=== PATIENT | male | born 1995 | race Two or more races ===

== ENCOUNTER 2023-06-25 03:17 | Emergency (ER) | payer MEDICAID ==
[~2023-06-25] VITALS: Ht 175.3 cm; Wt 109.0 kg
[2023-06-25 03:31] VITALS: BP 140/86; PULSE 89; RESP 16; TEMP 99.1; O2SAT 97
[2023-06-25] MEDS ORDERED: MUPI2OIN2 EX (03:38)
[2023-06-25] MEDS ORDERED: IBUP1TAB5 PO (03:38)
[2023-06-25] MEDS ORDERED: AUG875T PO (03:38)
[2023-06-25] MEDS: TETANUS-DIPTH-ACEL PERTUSSIS 0.5ML SYR Tdap IM ONE (04:36)
[2023-06-25] MEDS: AMOXICILLIN/CLAVUL 875 MG TAB PO ONE (04:37)
[2023-06-25] MEDS: NEOMYCIN-BACITRACIN-POLYM UNITDOSE PKG TOP OINT TOP ONE (04:37)
[2023-06-25] MEDS: IBUPROFEN 600 MG TAB PO ONE (04:37)
== END 2023-06-25 06:10 | disposition home or self-care (01) ==
LOC: ER 03:17
DX: S61.432A Puncture wound without foreign body of left hand, initial encounter (principal); S61.452A Open bite of left hand, initial encounter; W54.0XXA Bitten by dog, initial encounter; Y93.89 Activity, other specified; Y92.89 Other specified places as the place of occurrence of the external cause; Y99.8 Other external cause status
CPT/HCPCS: 90471; 90715

== ENCOUNTER 2025-04-22 10:24 | Emergency (ER) | payer MEDICAID ==
[~2025-04-22] VITALS: Ht 172.7 cm; Wt 103.9 kg
[~2025-04-22 10:24] MED LIST: AUG875T PO; IBUP1TAB5 PO; MUPI2OIN2 EX
--- NOTE | 2025-04-22 11:27 | ED.PDOC ---
Eye-HPI HPI Comments 29 year old male presents to the ED with a chief complaint of sore throat onset 2 days. Patient states he has been experiencing sore throat for the past 2 days, makes it difficult to eat or drink due to pain. He also noticed sore throat is causing shortness of breath. Patient went to urgent care, was advised to come to ED to rule out Peritonsillar abscess. No other symptoms or modifying factors present at this time. Denies chest pain Denies inability to move neck, history of meningitis Denies fevers chills night sweats Denies persistent cough, runny nose, congestion Denies loss of appetite, unintentional weight loss over the past 3 months Denies voice changes Denies history of asthma or seasonal allergies Chief Complaint: Sore Throat Time Seen by MD: 11:20 Reviewed Notes: Medications, Allergies Allergies: Coded Allergies: NO KNOWN ALLERGIES (Unverified , 06/25/23) Home Meds Active Scripts Ibuprofen Micronized (Ibuprofen) 600 Mg Tab, 1 TAB PO Q6HPRN PRN, #20 TAB as needed for pain Prov:VILLANUEVA,NORALDA Q W[employer]ING MACHINE OPERATOR THERMIT 06/25/23 Mupirocin (Pseudomonas Fluores (Mupirocin) 2 % Oin, 1 APPLIC EX TID for 10 Days, #15 MG Prov:VILLANUEVA,NORALDA Q WELDING MACHINE OPERATOR THERMIT 06/25/23 Amoxicillin & Pot Clavulanate (AUGMENTIN TABLET) 875 Mg Tb, 1 TAB PO BID for 10 Days, #20 TAB Prov:VILLANUEVA,NORALDA Q WELDING MACHINE OPERATOR THERMIT 06/25/23 Information Source: Patient Mode of Arrival: Ambulatory Timing: Days Duration: Since onset Prehospital treatment: None Past Medical History PAST MEDICAL HISTORY: Denies Surgical History: Denies all surgeries Family History Family History: Reviewed,noncontributory to illness, No family hx of Cancer, No family hx of DM, No family hx of Heart jess, No family hx of HTN, No family hx ofKidney jess, No family hx of Liver jess, No family hx of Lung jess, No family hx of Stroke Social History Smoker: Non-Smoker Alcohol: Denies ETOH Use Drugs: Denies Drug Use Lives In: Home All Other Systems: Reviewed and Negative (as per HPI) Physical Exam General Appearance: No Apparent Distress, Normal HEENT: TMs Normal, Other (+3 swelling to RT tonsil with visible tonsillar exudate, uvula midline, no deviation, airway is intact) Neck: Full Range of Motion, Non-Tender, Normal, Normal Inspection Respiratory: Chest Non-Tender, Lungs Clear, No Accessory Muscle Use, No Respiratory Distress, Normal Breath Sounds Cardiovascular: No Edema, No JVD, No Murmur, No Gallop, Normal Peripheral Pulses, Regular Rate/Rhythm Breast Exam: Deferred Gastrointestinal: No Organomegaly, Non Tender, No Pulsatile Mass, Normal Bowel Sounds, Soft Genitalia: Deferred Pelvic: Deferred Rectal: Deferred Extremities: No calf tenderness, Normal capillary refill, Normal inspection, Normal range of motion, Non-tender, No pedal edema Musculoskeletal : Apperance: Normal Neurologic: Alert, washhouse hand II-XII nml as Tested, No Motor Deficits, Normal Affect, Normal Mood, No Sensory Deficits Cerebellar Function: Normal Reflexes: Normal Skin: Dry, Normal Color, Warm Lymphatic: No Adenopathy Was a procedure done? Was a procedure done?: No EENT DIFF Eye: Other X-Ray, Labs, Meds, VS Vital Signs Date Time Temp Pulse Resp B/P (MAP) Pulse Ox O2 Delivery O2 Flow Rate FiO2 04/22/25 17:08 95 14 98 Room Air* 0 21 04/22/25 17:06 16 96 Room Air 04/22/25 17:06 98.7 85 16 120/77 (91) 96 98.7 04/22/25 13:07 98.1 104 16 126/77 (93) 98 98.1 04/22/25 10:43 97.6 101 16 142/92 96 97.6 Lab Test 04/22/25 16:59 04/22/25 15:42 04/22/25 13:30 04/22/25 11:40 Range/Units POC Glucose 116 H 125 H 70-106 mg/dl Group A Streptococcus Rapid Positive White Blood Count 22.4 H 4.4-10.8 10^3/uL Red Blood Count 5.57 4.5-5.90 10^6/uL Hemoglobin 16.2 13.5-17.5 g/dL Hematocrit 47.2 41.0-53.0 % Mean Corpuscular Volume 84.7 80.0-100.0 fL Mean Corpuscular Hemoglobin 29.1 28.0-32.0 pg Mean Corpuscular Hemoglobin Concent 34.3 32.0-36.0 g/dL Red Cell Distribution Width 13.3 11.8-14.3 % Platelet Count 395 140-450 10^3/uL Mean Platelet Volume 8.2 6.9-10.8 fL Neutrophils (%) (Auto) 85.1 H 37.0-80.0 % Lymphocytes (%) (Auto) 6.7 L 10.0-50.0 % Monocytes (%) (Auto) 7.6 0.0-12.0 % Eosinophils (%) (Auto) 0.1 0.0-7.0 % Basophils (%) (Auto) 0.5 0.0-2.0 % Neutrophils # (Auto) 19.0 H 1.6-8.6 10 ^3/uL Lymphocytes # (Auto) 1.5 0.4-5.4 10 ^3/uL Monocytes # (Auto) 1.7 H 0-1.3 10 ^3/uL Eosinophils # (Auto) 0 0-0.8 10 ^3/uL Basophils # (Auto) 0.1 0-0.2 10 ^3/uL Nucleated Red Blood Cells 0.1 % Sodium Level 139 136-145 mmol/L Potassium Level 3.9 3.5-5.1 mmol/L Chloride Level 102 98-107 mmol/L Carbon Dioxide Level 24 20-31 mmol/L Anion Gap 13 5-15 Blood Urea Nitrogen 8 L 9-23 mg/dL Creatinine 1.00 0.700-1.30 mg/dL Glomerular Filtration Rate Calc 106 >90 mL/min BUN/Creatinine Ratio 8.0 L 10.0-20.0 Serum Glucose 110 H 74-106 mg/dL Calcium Level 10.2 8.7-10.4 mg/dL Current Medications Medications (Trade) Dose Ordered Sig/Senait Route Start Time Stop Time Status Last Admin Dexamethasone Sodium Phosphate (Decadron Injection) 10 mg ONCE ONCE IV 04/22/25 11:30 04/22/25 11:31 DC 04/22/25 11:54 Ketorolac Tromethamine (Toradol Injection) 60 mg ONCE ONCE IM 04/22/25 11:30 04/22/25 11:31 DC 04/22/25 11:56 Ampicillin Sodium/ Sulbactam Sodium 3 gm/Sodium Chloride 100 ml @ 100 mls/hr ONCE STAT IV 04/22/25 13:00 04/22/25 13:59 DC 04/22/25 14:16 Sodium Chloride 1,000 ml @ 1,000 mls/hr Q1H ONCE IV 04/22/25 13:45 04/22/25 14:44 DC 04/22/25 13:55 Vancomycin HCl 250 ml @ 166.667 mls/hr ONCE ONCE IV 04/22/25 15:00 04/22/25 16:29 DC 04/22/25 15:29 [place] [id number] Ph: [phone] DIAGNOSTIC IMAGING Diagnostic Imaging Report : [id number] Signed PATIENT: CHELSEA NOGUEIRA ACCT: [id number] UNIT: [id number] : 1995 LOC: ER ROOM / BED: / AGE / SEX: 29 / M ADM STATUS: REG ER SERVICE 1124 ORDERING PHYSICIAN: MALI BOTELLO NP PROCEDURE(s): NK2CT - NECK WITH CONTRAST SOFT REASON: R/o peritonsillar abscess ORDER NUMBER(s): [id number], ACCESSION NUMBER(s): [id number] CT NECK WITH CONTRAST SOFT INDICATION: R/o peritonsillar abscess EXAM DATE: 04/22/2025 12:05 PM COMPARISON: None TECHNIQUE: CT of the neck with intravenous contrast. RADIATION DOSE: CTDIvol: 24.45 mGy, DLP: 873.78 mGy*cm FINDINGS: m there is a large right palatine tonsillar abscess measuring 2.7 x 2.1 cm. This results in significant narrowing of the oropharynx and oral cavity. There is also effacement of the right piriform sinus. There is hypertrophy/enlargement of the bilateral palatine tonsils. There is retropharyngeal edema. There is effacement of the right parapharyngeal fat with associated edema/ stranding. Right cervical jugulodigastric lymph nodes measuring up to 1.9 cm. Left cervical jugulodigastric lymph nodes measuring up to 1.3 cm. Left submandibular lymph nodes measuring up to 10 mm. Right submandibular lymph nodes measuring up to 8 mm. Thyroid gland unremarkable. No supraclavicular lymphadenopathy. Mastoids well pneumatized. Bilateral maxillary sinus mucosal thickening. Left maxillary sinus mucosal retention/cysts IMPRESSION: Large right palatine tonsillar abscess measuring 2.7 x 2.1 cm resulting in significant narrowing of the oropharynx/ oral cavity, effacement of the right piriform sinus and retropharyngeal edema. Recommend ENT consultation for further management, evaluate. Associated neck lymphadenopathy as described. Critical Result: [place] tonsillar abscess with narrowing of the o ropharynx/oral cavity, para form sinus and retropharyngeal edema Findings discussed with MALI BOTELLO at 04/22/2025 02:51 PM, and acknowledged receipt and understanding of the findings. .. ATED BY: ANÍBAL LIPSCOMB MD DICTATED DATE/TIME: 04/22/251252 SIGNED BY: ANÍBAL LIPSCOMB MD SIGNED DATE/TIME: 04/22/251252 CC: X-Ray, Labs, Meds, VS Comment 29 year old male presents to the ED with a chief complaint of sore throat onset 2 days. Patient arrives alert and oriented, ABC's intact, afebrile, vital signs stable, saturating well in room air Peripheral IV insertion+ labs were ordered. CBC was ordered to exclude anemia, blood loss, or infection. BMP was ordered to exclude electrolyte abnormalities, renal failure, dehydration, hyperglycemia Strep test ordered Diagnostic imaging ordered by me and results interpreted by radiology : CT NECK WO CONTRAST: IMPRESSION: Large right palatine tonsilar abscess measuring 2.7 x 2.1 cm resulting in significant narrowing of the oropharynx/ oral cavity, effacement of the right piriform sinus and retropharyngeal edema. Recommend ENT consultation for further management, evaluate. Associated neck lymphadenopathy as described. Critical Result: [place] tonsillar abscess with narrowing of the oropharynx/oral cavity, para form sinus and retropharyngeal edema Findings discussed with MALI BOTELLO at 04/22/2025 02:51 PM, and acknowledged receipt and understanding of the findings. Patient was given: Ketorolac 60 mg IM, Dexamethasone 10 mg IV. Unasyn and Vanco. Tolerated medications with no adverse reaction. Time: 13:21. Spoke with [facility]. Pt will be accepted for higher level of care. Dante Hanks will be the accepting physician in the ER. Time of 1ST Reevaluation: 11:50 Reevaluation 1ST: Improved Time of 2ND Reevaluation: 13:22 Reevaluation 2ND: Unchanged Patient Education/Counseling: Diagnosis, Treatment Family Education/Counseling: No Family Present SEPSIS Sepsis Screen Date sepsis recognized/suspect: Apr 22, 2025 Time Sepsis recognized/suspect: 1043 Recent Procedure: No On Antibiotic Therapy: No Respiratory Rate >20: No Heart Rate >90: No Temp<36 C (96.8 F) or >38.3 C: No SBP <90 or MAP <65 mmHG: No New Acute Mental Status Change: No Is the patient on CPAP, BIPAP,: No Physician Orders Neck With Contrast Soft (04/22/25 11:24) Imaging Transfer Request (04/22/25 12:54) Vital Signs Date Time Temp Pulse Resp B/P (MAP) Pulse Ox O2 Delivery O2 Flow Rate FiO2 04/22/25 17:08 95 14 98 Room Air* 0 21 04/22/25 17:06 16 96 Room Air 04/22/25 17:06 98.7 85 16 120/77 (91) 96 98.7 04/22/25 13:07 98.1 104 16 126/77 (93) 98 98.1 04/22/25 10:43 97.6 101 16 142/92 96 97.6 Laboratory Tests Test 04/22/25 11:40 White Blood Count 22.4 10^3/uL (4.4-10.8) H Departure 1 Departure Time of Disposition: 13:21 Impression: Primary Impression: Peritonsillar abscess Disposition: 51 HOSPICE/MEDICAL FACILITY Condition: Serious Critical Care Note Critical Care Time?: No Stability Stability form required: No Heart Score Heart Score: Heart Score Response (Comments) Value History N/A 0 EKG N/A 0 Age N/A 0 Risk Factors N/A 0 Troponin N/A 0 Total 0 I personally scribed for MALI BOTELLO NP ([employer]) on 04/22/25 at 11:27. Electronically submitted by Ginger Baker ([email or web address]). I personally scribed for MALI BOTELLO NP ([employer]) on 04/22/25 at 11:29. Electronically submitted by Ginger Baker ([email or web address]). I personally scribed for MALI BOTELLO NP ([employer]) on 04/22/25 at 13:04. Electronically submitted by Ginger Baker ([email or web address]). I personally scribed for MALI BOTELLO NP ([email or web address]) on 04/22/25 at 13:05. Electronically submitted by Ginger Baker ([email or web address]). MALI BOTELLO NP Apr 22, 2025 11:27
[2025-04-22] MEDS: KETOROLAC TROMETH 60MG/2ML VIAL IM ONE (11:56)
[2025-04-22 11:58] LABS: Hematocrit 47.2 % (41.0-53.0); Hemoglobin 16.2 g/dL (13.5-17.5); Mean Corpuscular Hemoglobin 29.1 pg (28.0-32.0); Mean Corpuscular Volume 84.7 fL (80.0-100.0); Nucleated Red Blood Cells % 0.1 %
[2025-04-22 12:07] LABS: Chloride 102 mmol/L (98-107); Potassium 3.9 mmol/L (3.5-5.1); Sodium 139 mmol/L (136-145)
[2025-04-22 12:08] LABS: Anion Gap 13 (5-15); Carbon Dioxide 24 mmol/L (20-31)
[2025-04-22 12:09] LABS: Calcium 10.2 mg/dL (8.7-10.4)
[2025-04-22 12:13] LABS: BUN/Creatinine Ratio 8.0 (10.0-20.0)
[2025-04-22 12:24] LABS: Blood Urea Nitrogen 8 mg/dL (9-23); Glucose 110 mg/dL (74-106)
--- NOTE | 2025-04-22 12:56 | DVH ---
CT NECK WITH CONTRAST SOFT INDICATION: R/o peritonsillar abscess EXAM DATE: 04/22/2025 12:05 PM COMPARISON: None TECHNIQUE: CT of the neck with intravenous contrast. RADIATION DOSE: CTDIvol: 24.45 mGy, DLP: 873.78 mGy*cm FINDINGS: m there is a large right palatine tonsillar abscess measuring 2.7 x 2.1 cm. This results in significant narrowing of the oropharynx and oral cavity. There is also effacement of the right piriform sinus. There is hypertrophy/enlargement of the bilateral palatine tonsils. There is retropharyngeal edema. There is effacement of the right parapharyngeal fat with associated edema/ stranding. Right cervical jugulodigastric lymph nodes measuring up to 1.9 cm. Left cervical jugulodigastric lymph nodes measuring up to 1.3 cm. Left submandibular lymph nodes measuring up to 10 mm. Right submandibular lymph nodes measuring up to 8 mm. Thyroid gland unremarkable. No supraclavicular lymphadenopathy. Mastoids well pneumatized. Bilateral maxillary sinus mucosal thickening. Left maxillary sinus mucosal retention/cysts IMPRESSION: Large right palatine tonsillar abscess measuring 2.7 x 2.1 cm resulting in significant narrowing of the oropharynx/ oral cavity, effacement of the right piriform sinus and retropharyngeal edema. Recommend ENT consultation for further management, evaluate. Associated neck lymphadenopathy as described. Critical Result: [place] tonsillar abscess with narrowing of the oropharynx/oral cavity, para form sinus and retropharyngeal edema Findings discussed with MALI BOTELLO at 04/22/2025 02:51 PM, and acknowledged receipt and understanding of the findings. ..
[2025-04-22] MEDS ORDERED: VANCOMYCIN PER PHARMACY 0 MG IV SCH (13:30)
[2025-04-22] MEDS: SODIUM CHLORIDE 0.9% 1,000 ML IV ONE (13:55)
[2025-04-22 14:14] LABS: Rapid Strep A Screen-Throat Positive
[2025-04-22] MEDS: AMPICILLIN & SULBACTAM SODIUM 3 GM in SODIUM CHL 0.9% 100 ML IV STA (14:16)
[2025-04-22] MEDS: VANCOMYCIN 1.5GM/250ML IV ONE (15:29)
[2025-04-22 17:06] VITALS: BP 120/77; TEMP 98.7
[2025-04-22 17:08] VITALS: PULSE 95; RESP 14; O2SAT 98
[2025-04-23] MEDS ORDERED: VANCOMYCIN 1GM/250ML IV SCH
== END 2025-04-22 17:05 | disposition hospice, inpatient (51) ==
LOC: ER 10:24
DX: J36 Peritonsillar abscess (principal); Z79.899 Other long term (current) drug therapy
CPT/HCPCS: 36415; 70491; 80048; 82947; 85025; 87880; 96365; 96366; 96367; 96372; 96375; 99285; J1100; J1885; J3374; J7030; 82962